=== PATIENT | male | born 1945 | race Caucasian/White ===

== ENCOUNTER 2016-09-13 07:21 | Day surgery (SDC) | payer MEDICARE, OTHER ==
[~2016-09-13] VITALS: Ht 177.8 cm; Wt 98.6 kg
[2016-09-13] VITALS (8 sets, daily range): BP systolic 91–145; BP diastolic 45–77; PULSE 64–70; RESP 18–20; TEMP 97.9–98.5; O2SAT 90–97
[2016-09-13] MEDS ORDERED: VITA250T3 PO (07:48)
[2016-09-13] MEDS ORDERED: PREV15CA PO (07:48)
[2016-09-13] MEDS ORDERED: DILT-64 PO (07:48)
[2016-09-13] MEDS ORDERED: ASPI-110 PO (07:48)
[2016-09-13] MEDS ORDERED: VITA10004 PO (07:48)
[2016-09-13] MEDS ORDERED: TH GCAP PO (07:48)
[2016-09-13] MEDS ORDERED: MULTTAB77 PO (07:48)
[2016-09-13] MEDS ORDERED: ATOR20TA15 PO (07:48)
[2016-09-13] MEDS ORDERED: CHOL1CAP6 PO (07:48)
[2016-09-13] MEDS ORDERED: FLUTI110I INH (07:52)
[2016-09-13] MEDS ORDERED: ALBUAER3 INH (07:52)
[2016-09-13] MEDS ORDERED: SPIRCAP INH (07:52)
[2016-09-13] MEDS ORDERED: SODIUM CHLOR 0.9% 1000 ML IV SCH (08:00)
[2016-09-13] MEDS ORDERED: LIDOCAINE 1%/EPINEPHrine 1:100,000 SOLN 20 ML VIAL ONE (09:23)
[2016-09-13] MEDS ORDERED: fentaNYL CITRATE 250 MCG/5 ML AMP ONE (09:37)
[2016-09-13] MEDS ORDERED: MIDAZOLAM HCL 5 MG/5 ML VIAL ONE (09:37)
--- NOTE | 2016-09-13 09:58 | PD.RAD ---
Post CT Procedure Prog Note Pre Procedure Diagnosis: (1) Liver mass Post Procedure Diagnosis: (1) Liver mass Procedure Date: Sep 13, 2016 Supervising Radiologist: Edgardo Lebron Anesthesia: Local, Conscious Sedation Plan of Activity Patient to Unit: [facility] Patient Condition: Good Additional Comments: Successful biopsy of the right lobe liver mass 2 Biopsys obtained with 18 ga needle See PACS Report for procedural detail/treatment Edgardo Lebron MD Sep 13, 2016 09:58
--- NOTE | 2016-09-13 10:12 | RADRPT ---
EXAM DATE/TIME: 09/13/2016 09:42 [facility] COMPARISON: No previous studies available for comparison. INDICATIONS : Liver mass. SEDATION TIME: 30 minutes BIOPSY SITE: Right MEDICATION(S): 1.) 2 mg midazolam (Versed) IV 2.) 100 mcg fentanyl (Sublimaze) IV DEVICE(S): 1.) 18 gauge Temno core biopsy needle MEDICAL HISTORY : Chronic obstructive pulmonary disease. Emphysema. SURGICAL HISTORY : None. ENCOUNTER: Initial ACUITY: 1 day PAIN SCORE: 0/10 LOCATION: Right A total of two core specimen(s) were obtained and sent to the laboratory for pathologic evaluation. PROCEDURE: 1. CT guided liver biopsy. 2. Conscious sedation with continuous EKG and oximetry monitoring. 3. EKG and oximetry remained stable throughout the procedure. Prior to the procedure informed consent was obtained. Any appropriate prior imaging studies were rev iewed. Using automated exposure control and adjustment of the mA and/or kV according to patient size, radiat ion dose was kept as low as reasonably achievable to obtain optimal diagnostic quality images. DICOM format image data is available electronically for review and comparison. The site was prepped in a sterile fashion. Full sterile technique was used, including cap, mask, uriel rile gloves and gown and a large sterile sheet. Hand hygiene and 2% chlorhexidine and/or betadine/al cohol prep was utilized per protocol for cutaneous antisepsis. The skin and subcutaneous tissues wer e infiltrated with local anesthetic solution. With CT guidance the previously identified target was localized. Biopsy was performed using the presc ribed needle as above. Adequate hemostasis was obtained with compression at the puncture site. Follow-up CT scan reveals no hemorrhage. The patient tolerated the procedure well and there were no complications. The patient was returned to the Radiology Outpatient Unit in stable condition. CONCLUSION: Uncomplicated CT guided biopsy. 2 core samples were obtained with an 18 gauge needle. Edgardo Lebron MD on September 13, 2016 at 10:10 Board Certified Radiologist. This report was verified electronically.
== END 2016-09-13 14:30 | disposition home or self-care (01) ==
LOC: HRAD 07:21 → HRIP 07:23 → HRAD 14:30
DX: C22.0 Liver cell carcinoma (principal); K74.60 Unspecified cirrhosis of liver; J44.9 Chronic obstructive pulmonary disease, unspecified
CPT/HCPCS: 47000; 77012; 88307; 88313; J2250; J3010; J7030; 88341

== ENCOUNTER → 2016-10-19 | Outpatient (CLI) | payer MEDICARE, OTHER ==
[~2016-10-19] MED LIST: ALBUAER3 INH; ASPI-110 PO; ATOR20TA15 PO; CHOL1CAP6 PO; DILT-64 PO; FLUTI110I INH; MULTTAB77 PO; PREV15CA PO; SPIRCAP INH; TH GCAP PO; VITA10004 PO; VITA2000 PO; VITA250T3 PO
[2016-10-19 08:59] LABS: BLOOD GAS HCO3 26 mmol/L (22-26); BLOOD GAS METHEMOGLOBIN 0.9 % (0-2); BLOOD GAS O2 HGB SATURATION 92 % (90-100); BLOOD GAS OXYGEN CONTENT 21.2 Vol % (12.0-20.0); BLOOD GAS PCO2 41 mmHG (38-42); BLOOD GAS PO2 76 mmHG (61-120); BLOOD GAS TOTAL HGB 16.4 G/DL (12.0-16.0); CRITICAL VALUE NO; DRAW SITE RT RADIAL; FIO2 21 %; NUMBER OF ARTERIAL PUNCTURES 2; OXYGEN DEVICE ROOM AIR; STAT NO; TEMP CORR TO 98.6; ULNAR PULSE PRESENT
--- NOTE | 2016-10-24 11:26 | RSPPFT ---
DATE OF PROCEDURE: 10/19/16 COMMENTS: VOLUMES DYNAMIC: FVC normal; FEV1 moderately reduced. STATIC: RV mildly increased; FRC and TLC normal. FLOWS: FEV1% moderately reduced; FEF 25-75 severely reduced. DIFFUSION: Mildly reduced. FLOW VOLUME LOOP: Pattern of variable intrathoracic airways obstruction. IMPRESSION: Mild to moderate obstructive ventilator defect with mild hyperinflation and a reduction in diffusion. There is improvement post-bronchodilator.
== END ==
LOC: PHRSP 08:14
PROVIDERS: ATTEND Internal Medicine
DX: J44.9 Chronic obstructive pulmonary disease, unspecified (principal)
CPT/HCPCS: 36600; 82805; 94060; 94620; 94726; 94729

== ENCOUNTER → 2016-10-20 | Outpatient (CLI) | payer MEDICARE, OTHER ==
--- NOTE | 2016-10-20 20:15 | ECHRPT ---
Indication: ANGINA CONCLUSIONS The left ventricular systolic function is normal with an estimated ejection fraction in the range of 55-60%. Trace mitral valve regurgitation. There is trace tricuspid valve regurgitation. Trivial pulmonary valve regurgitation. BP: / HR: Rhythm: Sinus MEASUREMENTS (Male / Female) Normal Values Technical Quality:Good 2D ECHO LV Diastolic Diameter PLAX 4.7 cm 4.2 - 5.9 / 3.9 - 5.3 cm LV Systolic Diameter PLAX 3.5 cm IVS Diastolic Thickness 1.1 cm 0.6 - 1.0 / 0.6 - 0.9 cm LVPW Diastolic Thickness 0.7 cm 0.6 - 1.0 / 0.6 - 0.9 cm LV Relative Wall Thickness 0.4 RV Internal Dim ED PLAX 2.1 cm LA Systolic Diameter LX 3.1 cm 3.0 - 4.0 / 2.7 - 3.8 cm M-MODE Aortic Root Diameter MM 3.0 cm AV Cusp Separation MM 2.0 cm DOPPLER AV Peak Velocity 168.0 cm/s AV Peak Gradient 11.3 mmHg LVOT Peak Velocity 73.5 cm/s LVOT Peak Gradient 2.2 mmHg Mitral E Point Velocity 57.8 cm/s Mitral A Point Velocity 99.7 cm/s Mitral E to A Ratio 0.6 TR Peak Velocity 300.0 cm/s TR Peak Gradient 36.0 mmHg FINDINGS LEFT VENTRICLE Normal left ventricular size. Wall thickness is normal. The left ventricular systolic function is normal with an estimated ejection fraction in the range of 55-60%. RIGHT VENTRICLE Normal right ventricular size and systolic function. LEFT ATRIUM The left atrial size is normal. RIGHT ATRIUM The right atrial size is normal. ATRIAL SEPTUM The interatrial septum not well visualized. AORTA The aortic root and proximal ascending aorta are normal in size on limited imaging. MITRAL VALVE Mitral annular calcification is present. Structurally normal mitral valve. Trace mitral valve regurgitation. No mitral valve stenosis. AORTIC VALVE Aortic valve sclerosis is present. No aortic valve regurgitation. No aortic valve stenosis. TRICUSPID VALVE There is estimated mild pulmonary hypertension present (46 mmHg). Structurally normal tricuspid valve. There is trace tricuspid valve regurgitation. No tricuspid valve stenosis. PULMONARY VALVE Trivial pulmonary valve regurgitation. The pulmonary valve is not well visualized. VESSELS The inferior vena cava is normal in size. PERICARDIUM No pericardial effusion. Jordy Zarco DO (Electronically Signed) Final Date:20 October 2016 20:14
== END ==
LOC: HECH 08:25
PROVIDERS: ATTEND Internal Medicine
DX: I25.10 Atherosclerotic heart disease of native coronary artery without angina pectoris (principal); R91.8 Other nonspecific abnormal finding of lung field; R59.0 Localized enlarged lymph nodes
CPT/HCPCS: 36415; 80048; 85027; 85610; 85730; 93306

== ENCOUNTER → 2016-10-20 | Outpatient (CLI) | payer MEDICARE, OTHER ==
[2016-10-20 11:19] LABS: HEMATOCRIT 47.2 % (39.0-51.0); MEAN CELL VOLUME 93.9 FL (80.0-100.0); MEAN CORPUSCULAR HEMOGLOBIN 31.7 PG (27.0-34.0); MEAN CORPUSCULAR HGB CONC 33.8 % (32.0-36.0); PLATELET COUNT 224 TH/MM3 (150-450); RED BLOOD COUNT 5.03 MIL/MM3 (4.50-5.90); RED CELL DISTRIBUTION WIDTH 13.9 % (11.6-17.2); REVIEW FLAG FINAL
[2016-10-20 11:34] LABS: APTT (PATIENT) 24.7 SEC (24.3-30.1); PROTHROMBIN TIME - PATIENT 11.4 SEC (9.8-11.6)
[2016-10-20 11:40] LABS: BICARBONATE 30.5 MEQ/L (21.0-32.0)
== END ==
LOC: CPRE 10:35
PROVIDERS: ATTEND Internal Medicine
DX: Z01.812 Encounter for preprocedural laboratory examination (principal); R91.8 Other nonspecific abnormal finding of lung field; R59.0 Localized enlarged lymph nodes
CPT/HCPCS: 36415; 80048; 85027; 85610; 85730

== ENCOUNTER 2016-10-24 10:48 | Day surgery (SDC) | payer MEDICARE, OTHER ==
--- NOTE | 2016-10-16 15:25 | MB ---
cc: MARCELINO SANTO M.D., DAVID, M.D. WHITE, R. STEVEN DATE OF CONSULTATION: 10/13/2016 REASON FOR CONSULTATION: Mr. Boggs with a 70-year-old white male recently evaluated for a liver lesion which turned out to be hepatocellular carcinoma. As part of that evaluation, he underwent a PET/CT which revealed a 2 cm mass in the right infrahilar region suspicious for malignancy. PET/CT was positive in this region with no other significant hypermetabolic lesions in the mediastinum. He is referred now for further evaluation of the lung lesion, possible metastatic disease versus lung cancer. He has been a one to two pack per day smoker most of his adult life, currently smoking about 10 cigarettes a day and trying to quit. We had a thorough review of that today including options for quitting since that will be important. He has very few chest symptoms. He has mild dyspnea on exertion, a mild nonproductive cough with no hemoptysis or purulent sputum and no recent exacerbations. PAST MEDICAL HISTORY: Fairly extensive prior history includin. Type 2 diabetes. 2. COPD. 3. Hypertension. 4. Hyperlipidemia. 5. Osteoarthritis. 6. Arteriosclerosis but without documented to previous cardiac disease. 7. Some chronic renal insufficiency. 8. Gastroesophageal reflux disease. 9. Benign prostate hypertrophy. ALLERGIES: 1. NIASPAN. 2. SIMCOR. CURRENT MEDICATIONS: 1. Spiriva. 2. Flovent. 3. Atorvastatin. 4. Diltiazem. 5. Aspirin 81 milligrams. 6. Prevacid. SOCIAL HISTORY: and living with his for 45 years. Smoking noted. Rarely drinks alcohol currently; did drink up until about five or six years ago. 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 No obvious asbestos exposure. They have a cat at home. REVIEW OF SYSTEMS: Appetite has been stable. Weight is high but stable. No anginal chest pain or significant chronic edema. No current reflux symptoms or disabling arthritis. FAMILY HISTORY: Mother was diabetic and of heart disease. Father also had heart disease. PHYSICAL EXAMINATION: VITAL SIGNS: Blood pressure 128/64, pulse 87, temperature is 98, sat 93% on room air. HEAD, EYES, EARS, NOSE, THROAT: The sclerae are nonicteric. The mucous membranes are moist. Pharynx is clear. LYMPHATIC: No adenopathy palpable in the neck or supraclavicular region. CHEST: Diminished but clear. No wheezes. No rales or congestion. HEART: Regular rhythm. No harsh murmur. ABDOMEN: Soft. EXTREMITIES: No pitting edema. No cyanosis or clubbing. IMAGING STUDIES: PET/CT and CT of the chest are reviewed and I have reviewed recommendations thoroughly today with the patient. We are scheduling pulmonary functions this week and bronchoscopy to follow. I have reviewed the procedure in simple terms with the patient including the potential risks including anesthetic complications, bleeding or pneumothorax and more remotely, respiratory failure given his underlying COPD. We have also discussed alternatives and the needle aspiration biopsy is probably not advised because this is a very central lesion with vascular structures surrounding it. I also explained to the patient that this may not be a definitive procedure, particularly if it is an extra bronchial lesion, although we will use ultrasound if needed and if we do not establish a definitive diagnosis additional diagnostic procedures would be needed. The patient is also being evaluated for his hepatocellular carcinoma. He is seeing a surgeon next week about that and will coordinate with his other doctors as we go forward. Further diagnostic and/or therapeutic intervention will depend on his initial diagnostic study. I have also spent time talking to him about stopping smoking, which is important, and the options available for that. R. MD RANJITH Perez/EMILY /12:41 PM /3:18 PM
[~2016-10-24] VITALS: Ht 175.3 cm; Wt 100.9 kg
[~2016-10-24 10:48] MED LIST changes: -ATOR20TA15 PO; -CHOL1CAP6 PO
[2016-10-24 11:05] VITALS: BP 140/81; PULSE 81; RESP 18; TEMP 98.1; O2SAT 93
[2016-10-24] MEDS ORDERED: POVIDONE IODINE 5% (ANTISEPSIS KIT) 4 APPLICATIONS EACH NARE PRN (11:15)
[2016-10-24] MEDS ORDERED: SODIUM CHLORID 0.9% 500 ML IV PRN (11:15)
[2016-10-24] MEDS ORDERED: METOPROLOL TARTRATE 25 MG TAB PO PRN (11:15)
[2016-10-24] MEDS ORDERED: LACTATED RINGER'S 1000 ML IV PRN (11:15)
[2016-10-24] MEDS ORDERED: INSULIN HUMAN REGULAR 1,000 UNITS/10 ML VIAL SQ PRN (11:15)
[2016-10-24] MEDS ORDERED: CHLORHEXIDINE GLUCONATE 2 % 1 PACK (2 CLOTHS) TOPICAL PRN (11:15)
[2016-10-24] MEDS ORDERED: ONDANSETRON HCL 4 MG/2 ML VIAL IV PUSH ONE (12:00)
[2016-10-24] MEDS ORDERED: PHENYLEPH/NS 1000 MCG/10 ML SYR IV ONE (12:00)
[2016-10-24] MEDS ORDERED: NEOSTIGMINE 3 MG/3 ML SYR IV ONE (12:00)
[2016-10-24] MEDS ORDERED: PROPOFOL 200 MG/20 ML AMP IV ONE (12:00)
[2016-10-24] MEDS ORDERED: RESP: ALBUTEROL CONC 2.5 MG/0.5 ML NEB ONE (12:35)
[2016-10-24] MEDS ORDERED: RESP: LIDOCAINE HCL 4% PF 5 ML NEB ONE (12:35)
--- NOTE | 2016-10-24 13:35 | RADRPT ---
EXAM DATE/TIME: 10/24/2016 12:43 [facility] COMPARISON: No previous studies available for comparison. INDICATIONS : Right hilar mass, VERAN study RADIATION DOSE: 9.09 CTDIvol (mGy) MEDICAL HISTORY : Chronic obstructive pulmonary disease. Emphysema. SURGICAL HISTORY : None. ENCOUNTER: Initial ACUITY: 1 day PAIN SCALE: 0/10 LOCATION: chest TECHNIQUE: Volumetric scanning of the chest was performed using inspiration and expiration protocols. The study is performed using fiduciary markers for virtual bronchoscopy. Using automated exposure control and adjustment of the mA and/or kV according to patient size, radiation dose was kept as low as reasonabl y achievable to obtain optimal diagnostic quality images. DICOM format image data is available elec tronically for review and comparison. Follow-up recommendations for detected pulmonary nodules are based at a minimum on nodule size and pa tient risk factors according to Fleischner Society Guidelines. FINDINGS: There is atherosclerotic plaquing of the aorta and coronary arteries with coronary artery calcificati on identified. Subcentimeter lymph nodes in the mediastinum are present in the prevascular space, AP window, right paratracheal region and subcarinal station. No pleural or pericardial effusions. Cholel ithiasis is identified. There is mild hepatic steatosis. On lung windows, there is a mass identified in the right lower lobe measuring approximately 3.1 x 2.9 cm in size. There is atelectasis distal to this point and right posterior costophrenic consolidative opacity is noted with air bronchogram forma tion. The bones are unremarkable. CONCLUSION: 1. Right lower lobe mass with postobstructive atelectasis/consolidation. 2. Atherosclerosis. Abebe Tam MD on October 24, 2016 at 13:29 Board Certified Radiologist. This report was verified electronically.
[2016-10-24] MEDS ORDERED: *RESP: ALBUTEROL 2.5 MG/3 ML NEB (PRN) PERIprocedural Use ONLY NEB ONE ×2 (15:25→15:54)
[2016-10-24] MEDS ORDERED: methylPREDNISolone SOD SUCC 125 MG/2 ML VIAL ONE (15:26)
[2016-10-24] MEDS ORDERED: RESP: ALBUTEROL 2.5 MG/3 ML NEB (PRN) NEB (15:30)
[2016-10-24] MEDS ORDERED: FUROSEMIDE 20 MG/2 ML VIAL ONE (15:32)
--- NOTE | 2016-10-24 15:42 | MP ---
cc: Reyes LINO M.D. DATE OF SURGERY: 10/24/2016 PROCEDURE: Bronchoscopy. INDICATIONS FOR PROCEDURE: Right infrahilar mass. PROCEDURE: After informed consent was obtained the patient underwent diagnostic bronchoscopy with general anesthesia. Examination of the mid to distal trachea was normal. Examination of the left main stem bronchus, left upper lobe and lower lobes were was entirely unremarkable. Examination of right upper lobe and right middle lobe was normal but the right lower lobe there was narrowing of the bronchus and irregular mucosa in the area of the lesion on CT scan. This area was washed extensively and submitted for cytology and culture. Using navigational directional support biopsies and needle aspiration were then obtained from the lesion in the right lower lobe. Ultrasound guidance was then utilized to obtain a biopsy from a 10R lymph node which was submitted for cytology. In summary, the patient has a lesion in the right lower lobe there was no endobronchial component with irregular mucosa. Multiple specimens were submitted for culture, cytology and routine histology. He tolerated the procedure well without apparent complication is being transferred ported back to recovery. MD RANJITH Souza/derrick /3:21 PM /3:25 PM
--- NOTE | 2016-10-24 16:11 | RADRPT ---
EXAM DATE/TIME: 10/24/2016 15:34 [facility] COMPARISON: CT THORAX W/O CONTRAST INSP/EXPIR, NAVIGATION, October 24, 2016, 12:43. INDICATIONS : Post right lung bronchoscopy. MEDICAL HISTORY : Chronic obstructive pulmonary disease. Emphysema SURGICAL HISTORY : None. ENCOUNTER: Initial ACUITY: 1 day PAIN SCORE: Non-responsive. LOCATION: Bilateral chest FINDINGS: A single view of the chest demonstrates the lungs to be hypoinflated with bibasilar atelectatic bedoya es. Interstitial markings are somewhat prominent but are probably related to hypoinflation. Increased density in the right cardiophrenic angle appears to correspond to a mass lesion in consolidation in the inferior right perihilar distribution and medial right base. No pneumothorax. CONCLUSION: 1. Bibasilar atelectatic changes. 2. Focal area of increased density medially in the right lower lung field corresponds to the right pe rihilar mass lesion and associated medial lower lobe atelectasis. 3. No pneumothorax post bronchoscopy. John Kelly MD on October 24, 2016 at 16:06 Board Certified Radiologist. This report was verified electronically.
[2016-10-24] MEDS ORDERED: DO NOT ADM ANY ANTICOAGULANT DRUGS PRN (16:15)
[2016-10-24 16:30] VITALS: BP 110/65; PULSE 77; RESP 16; TEMP 97.6; O2SAT 95
[2016-10-24 16:45] VITALS: BP 127/75; PULSE 77; RESP 16; O2SAT 95
[2016-10-24 17:15] VITALS: BP 152/66; PULSE 86; RESP 16; O2SAT 95
[2016-10-24 17:30] VITALS: BP 143/65; PULSE 85; RESP 16; O2SAT 93
--- NOTE | 2016-10-25 20:08 | EKG ---
Date Performed: 10/24/2016 Time Performed: 11:25:16 PTAGE: 70 years EKG: Sinus rhythm MARKED LEFT AXIS DEVIATION RIGHT BUNDLE BRANCH BLOCK ABNORMAL ECG NO PREVIOUS TRACING DOCTOR: Sammy Singh Interpretating Date/Time 10/25/2016 20:06:58
== END 2016-10-24 17:40 | disposition home or self-care (01) ==
LOC: HROP 10:48 → HRIP 10:51 → HROP 17:40
PROVIDERS: ATTEND Internal Medicine
DX: C34.31 Malignant neoplasm of lower lobe, right bronchus or lung (principal); C22.0 Liver cell carcinoma; R06.09 Other forms of dyspnea; E11.22 Type 2 diabetes mellitus with diabetic chronic kidney disease; B96.89 Other specified bacterial agents as the cause of diseases classified elsewhere; I12.9 Hypertensive chronic kidney disease with stage 1 through stage 4 chronic kidney disease, or unspecified chronic kidney disease; E78.5 Hyperlipidemia, unspecified; J44.9 Chronic obstructive pulmonary disease, unspecified; K21.9 Gastro-esophageal reflux disease without esophagitis; N18.9 Chronic kidney disease, unspecified; N40.0 Benign prostatic hyperplasia without lower urinary tract symptoms; M19.90 Unspecified osteoarthritis, unspecified site; F17.210 Nicotine dependence, cigarettes, uncomplicated; Z79.82 Long term (current) use of aspirin; Z01.810 Encounter for preprocedural cardiovascular examination
CPT/HCPCS: 00520; 31627; 31628; 71010; 71250; 82948; 87015; 87070; 87102; 87116; 87185; 87205; 87206; 88112; 88305; 88307; 93005; 94640; 94664; J1940; J2370; J2405; J2710; J2930; J7040; J7611; J7613